=== PATIENT | female | born 2000 | race Two or more races ===

== ENCOUNTER 2021-10-29 13:32 | Emergency (ER) | payer OTHER ==
[~2021-10-29] VITALS: Ht 165.1 cm; Wt 100.0 kg
[2021-10-29 13:47] VITALS: BP 139/77
[2021-10-29 14:09] LABS: BILIRUBIN,URINE NEGATIVE (NEG); CLARITY,URINE HAZY; COLOR,URINE YELLOW
[2021-10-29 14:10] LABS: NITRITE,URINE NEGATIVE (NEG); PH,URINE 6.5 (<5.0-8.0); PROTEIN,URINE 30 mg/dL (NEG-TRACE); UROBILINOGEN,URINE 0.2 mg/dL (0.2 mg/dL)
[2021-10-29 14:12] LABS: BACTERIA,URINE FEW /HPF (0-FEW); HYALINE CASTS, URINE OCCASIONAL /HPF
[2021-10-29] MEDS ORDERED: NAPROXEN 500 MG TABLET PO STA (14:27)
[2021-10-29] MEDS ORDERED: ONDANSETRON ODT 4 MG TAB.RAPDIS. PO ONE (14:30)
[2021-10-29] MEDS ORDERED: HYDROcodone/APAP 5/325MG 1 TAB TABLET PO ONE (14:30)
[2021-10-29] MEDS ORDERED: PHENAZOPYRIDINE 200 MG TABLET. PO ONE (14:30)
[2021-10-29] MEDS ORDERED: CEPH500T PO (14:46)
[2021-10-29] MEDS ORDERED: PHEN100T82 PO (14:46)
[2021-10-29] MEDS ORDERED: NAPR-514 PO (14:46)
--- NOTE | 2021-10-29 14:46 | PHYS DOC ---
Past Medical History Past Medical History: Diabetes-Type I Past Surgical History: Cholecystectomy General Adult EDM: Chief Complaint: ABDOMINAL PAIN HPI: HPI: Patient is a 21 year old female with history of diabetes type 1 presenting to the ED today complaining of dysuria, nausea, symptoms began yesterday. Review of Systems: Review of Systems: Constitutional: Denies fever or chills. [][] GI: Reports nausea denies abdominal pain, vomiting, bloody stools or diarrhea. [] : Reports dysuria Musculoskeletal: Denies back pain or joint pain. [] Integument: Denies rash. [] Neurologic: Denies headache, focal weakness or sensory changes. [] Psychiatric: Denies depression or anxiety. [] Heart Score: C/O Chest Pain: N/A Risk Factors: Risk Factors: DM, Current or recent (<one month) smoker, HTN, HLP, family history of CAD, obesity. Risk Scores: Score 0 - 3: 2.5% MACE over next 6 weeks - Discharge Home Score 4 - 6: 20.3% MACE over next 6 weeks - Admit for Clinical Observation Score 7 - 10: 72.7% MACE over next 6 weeks - Early Invasive Strategies Current Medications: Current Medications Medications (Trade) Dose Ordered Sig/[place] Start Time Stop Time Status Last Admin Dose Admin Acetaminophen/ Hydrocodone Bitart (Lortab 5/325) 1 tab 1X ONCE 10/29/21 14:30 10/29/21 14:32 DC Naproxen (Naprosyn) 500 mg 1X STAT 10/29/21 14:27 10/29/21 14:32 DC Ondansetron HCl (Zofran Odt) 4 mg 1X ONCE 10/29/21 14:30 10/29/21 14:32 DC Phenazopyridine HCl (Pyridium) 200 mg 1X ONCE 10/29/21 14:30 10/29/21 14:32 DC Allergies: Allergies: Allergies Coded Allergies Type Severity Reaction Last Updated Verified No Known Drug Allergies 10/29/21 No Physical Exam: PE: Constitutional: Well developed, well nourished, no acute distress, non-toxic appearance. [] Abdomen: Bowel sounds normal, soft, no tenderness, no masses, no pulsatile masses. [] Skin: Warm, dry, no erythema, no rash. [] Back: No tenderness, no CVA tenderness. [] Extremities: No tenderness, no cyanosis, no clubbing, ROM intact, no edema. [] Neurologic: Alert and oriented X 3, normal motor function, normal sensory function, no focal deficits noted. [] Psychologic: Affect normal, judgement normal, mood normal. [] Current Patient Data: Labs: Laboratory Tests Test 10/29/21 13:44 10/29/21 13:49 10/29/21 14:31 Urine Collection Type Unknown Urine Color Yellow Urine Clarity Hazy Urine pH 6.5 (<5.0-8.0) Urine Specific [place] >=1.030 (1.000-1.030) Urine Protein 30 mg/dL (NEG-TRACE) Urine Glucose (UA) 500 mg/dL (NEG) Urine Ketones (Stick) Negative mg/dL (NEG) Urine Blood Trace (NEG) Urine Nitrite Negative (NEG) Urine Bilirubin Negative (NEG) Urine Urobilinogen Dipstick 0.2 mg/dL (0.2 mg/dL) Urine Leukocyte Esterase Small (NEG) Urine RBC 1-2 /HPF (0-2) Urine WBC 11-20 /HPF (0-4) Urine Squamous Epithelial Cells Few /LPF Urine Bacteria Few /HPF (0-FEW) Urine Hyaline Casts Occasional /HPF Urine Mucus Slight /LPF POC Urine HCG, Qualitative Hcg negative (Negative) Glucose (Fingerstick) 149 mg/dL (70-99) H Vital Signs: Vital Signs Date Time Temp Pulse Resp B/P (MAP) Pulse Ox O2 Delivery O2 Flow Rate FiO2 10/29/21 13:47 99.2 91 16 139/77 (97) 98 Room Air 99.2 EKG: EKG: [] Radiology/Procedures: Radiology/Procedures: [] Course & Med Decision Making: Course & Med Decision Making Pertinent Labs and Imaging studies reviewed. (See chart for details) This is a 21-year-old female patient presented to the ED today with dysuria that began yesterday as well as nausea. Urine positive for UTI. Discharged on cephalexin. Follow-up with PCP in 1 to 2 weeks. Matias Disclaimer: Matias Disclaimer: This electronic medical record was generated, in whole or in part, using a voice recognition dictation system. Departure Departure Impression: Primary Impression: Urinary tract infection Qualified Codes: N39.0 - Urinary tract infection, site not specified Disposition: HOME / SELF CARE / HOMELESS Condition: STABLE Referrals: IRASEMA BAILEY (PCP) follow up with your doctor in one week Patient Instructions: Urinary Tract Infection Additional Instructions: You have urinary tract infection. Take the prescribed antibiotics until completed. Follow-up with your doctor in the next 1 to 2 weeks. Scripts Naproxen (NAPROXEN) 500 Mg Tablet 1 TAB PO BID for pain, #14 TAB 0 Refills Prov: EVARISTO FELIZ APRN 10/29/21 Phenazopyridine Hcl (PYRIDIUM) 100 Mg Tablet 1 TAB PO TID for urinary discomfort for 3 Days, #9 TAB 0 Refills Prov: EVARISTO FELIZ APRN 10/29/21 Cephalexin (CEPHALEXIN) 500 Mg Tablet 1 TAB PO BID, #14 TAB Prov: EVARISTO FELIZ APRN 10/29/21 EVARISTO FELIZ APRN Oct 29, 2021 14:46
== END 2021-10-29 14:55 | disposition home or self-care (01) ==
LOC: ER 13:32
DX: N39.0 Urinary tract infection, site not specified (principal); E10.9 Type 1 diabetes mellitus without complications; Z90.49 Acquired absence of other specified parts of digestive tract
CPT/HCPCS: 81001; 81025; 82962; 87086; 99284